=== PATIENT | male | born 1955 | race Two or more races ===

== ENCOUNTER 2022-01-27 17:12 | Inpatient (IN) | payer MEDICARE, MEDICAID ==
[~2022-01-27] VITALS: Ht 172.7 cm; Wt 111.0 kg
[~2022-01-27 17:12] MED LIST: TRAM100T25 PO
[2022-01-27] MEDS ORDERED: LISI-894 PO (17:54)
[2022-01-27] MEDS ORDERED: METF-1211 PO (17:54)
[2022-01-27] MEDS ORDERED: PANT-31 PO (17:54)
[2022-01-27] MEDS ORDERED: PIPERACILLIN/TAZO 3.375 GM/D5W 50 ML IV ONE (18:45)
[2022-01-27 19:08] LABS: BASOPHILS % (AUTO) 0.9 % (0.0-2.0); EOSINOPHILS % (AUTO) 1.8 % (1.0-6.0); HEMATOCRIT 40.6 % (41-53); HEMOGLOBIN 13.3 g/dL (13.5-17.5); LYMPHOCYTES # (AUTO) 1.6 K/uL (1.0-4.8); MEAN CORPUSCULAR HEMOGLOBIN 29.4 pg (26.0-34.0); MEAN CORPUSCULAR HGB CONC 32.8 G/dL (31.0-37.0); MEAN CORPUSCULAR VOLUME 90 fL (80-100); MONOCYTES # (AUTO) 1.2 K/uL (0.1-1.0); NEUTROPHILS # (AUTO) 10.4 K/uL (1.8-7.7); NEUTROPHILS % (AUTO) 76.3 % (40.0-70.0); PLATELET COUNT (AUTO) 196 K/uL (150-450); RED BLOOD CELL COUNT(AUTO) 4.53 MIL/uL (4.50-5.90); RED CELL DISTRIBUTION WIDTH 13.9 % (11.5-14.5)
[2022-01-27 19:19] LABS: CALCIUM, TOTAL 9.1 mg/dL (8.8-10.5); CREATININE 1.3 mg/dL (0.60-1.30); POTASSIUM 4.4 mmol/L (3.5-5.1)
[2022-01-27 19:26] LABS: LACTIC ACID 1.9 mmol/L (0.4-2.0)
[2022-01-27 19:33] LABS: ALBUMIN 3.6 g/dL (3.4-5.0); BILIRUBIN,TOTAL 0.2 mg/dL (0.1-1.0); TOTAL PROTEIN, SERUM 7.5 g/dL (6.4-8.2)
[2022-01-27] MEDS ORDERED: CefTRIAXone 1 GM/DEXTROSE 50 ML IV ONE (20:00)
[2022-01-27] MEDS ORDERED: VANCOMYCIN HCL 1 GM/D5% WATER 200 ML IV SCH (20:00)
[2022-01-27] MEDS ORDERED: DEXTROSE 50%-WATER 25 GM/50 ML SYRINGE IVP PRN (20:00)
[2022-01-27] MEDS ORDERED: ONDANSETRON HCL 4 MG/2 ML VIAL IVP PRN (20:00)
[2022-01-27] MEDS: VANCOMYCIN 1GM/WATER(PEG/NADA) 200 ML IV SCH (20:46)
[2022-01-27] MEDS: ACETAMINOPHEN 325 MG TABLET PO PRN (21:23)
[2022-01-27 22:32] VITALS: BP 122/72
[2022-01-27] MEDS: MORPHINE SULFATE 2 MG/ML SYRINGE IVP PRN (23:20)
[2022-01-27] MEDS: HEPARIN SODIUM,PORCINE 5,000 UNITS/ML VIAL SQ SCH (23:25)
[2022-01-28] MEDS: MORPHINE SULFATE 2 MG/ML SYRINGE IVP PRN ×4 (03:50→20:05)
[2022-01-28] MEDS: ACETAMINOPHEN 325 MG TABLET PO PRN (04:27)
[2022-01-28 04:52] VITALS: BP 102/63
[2022-01-28] MEDS: HEPARIN SODIUM,PORCINE 5,000 UNITS/ML VIAL SQ SCH ×3 (08:00→15:52)
[2022-01-28 10:25] VITALS: BP 120/79
[2022-01-28] MEDS: VANCOMYCIN 1GM/WATER(PEG/NADA) 200 ML IV SCH ×2 (10:25→20:59)
[2022-01-28] MEDS ORDERED: SODIUM CHLORIDE 0.9% 500 ML IV ONE (10:31)
[2022-01-28 11:31] LABS: GLUCOMETER DEV NAME(LOC) 5S.1B; GLUCOSE,POINT OF CARE 187 MG/DL (70-110)
[2022-01-28 13:04] VITALS: BP 109/69
[2022-01-28] MEDS: ALBUTEROL SULFATE 2.5 MG/0.5 ML NEB SOLUTION NEB PRN (15:58)
[2022-01-28 19:58] VITALS: BP 106/59
[2022-01-28 20:05] LABS: GLUCOMETER DEV NAME(LOC) 5S.2B; GLUCOSE,POINT OF CARE 182 MG/DL (70-110)
[2022-01-28] MEDS: CefTRIAXone 1 GM/DEXTROSE 50 ML IV SCH (20:17)
[2022-01-28] MEDS: INSULIN LISPRO 100 UNITS/ML SQ PRN (20:18)
[2022-01-28 21:41] LABS: GLUCOMETER DEV NAME(LOC) 5S.1B; GLUCOSE,POINT OF CARE 176 MG/DL (70-110)
[2022-01-29 00:40] VITALS: BP 109/69
[2022-01-29] MEDS: MORPHINE SULFATE 2 MG/ML SYRINGE IVP PRN ×5 (00:40→19:42)
[2022-01-29 06:41] VITALS: BP_SYST 107; BP_SYST 122; BP_DIAS 68; BP_DIAS 76
[2022-01-29 06:41] LABS: GLUCOMETER DEV NAME(LOC) 5S.1B; GLUCOSE,POINT OF CARE 136 MG/DL (70-110)
[2022-01-29 07:55] VITALS: BP 111/60
[2022-01-29] MEDS: HEPARIN SODIUM,PORCINE 5,000 UNITS/ML VIAL SQ SCH ×3 (08:57→16:00)
[2022-01-29] MEDS: VANCOMYCIN 1GM/WATER(PEG/NADA) 200 ML IV SCH ×2 (08:57→19:43)
[2022-01-29] MEDS: INSULIN LISPRO 100 UNITS/ML SQ PRN ×2 (11:55→17:49)
[2022-01-29 12:33] VITALS: BP 128/72
[2022-01-29] MEDS ORDERED: MORPHINE SULFATE 2 MG/ML SYRINGE IVP ONE (13:00)
[2022-01-29] MEDS: ALBUTEROL SULFATE 2.5 MG/0.5 ML NEB SOLUTION NEB PRN (14:20)
[2022-01-29 15:39] VITALS: BP_SYST 112; BP_SYST 146; BP_DIAS 74; BP_DIAS 82
[2022-01-29 18:36] LABS: GLUCOMETER DEV NAME(LOC) 5N.1C; GLUCOSE,POINT OF CARE 218 MG/DL (70-110)
[2022-01-29] MEDS: CefTRIAXone 1 GM/DEXTROSE 50 ML IV SCH (19:42)
[2022-01-29] MEDS ORDERED: PSYLLIUM SEED ORANGE SF 5.8 GM/PACKET PO PRN (21:00)
[2022-01-30] MEDS: MORPHINE SULFATE 2 MG/ML SYRINGE IVP PRN ×3 (00:08→08:28)
[2022-01-30] MEDS: HEPARIN SODIUM,PORCINE 5,000 UNITS/ML VIAL SQ SCH ×2 (00:08→08:00)
[2022-01-30 00:11] VITALS: BP 107/69
[2022-01-30] MEDS: ALBUTEROL SULFATE 2.5 MG/0.5 ML NEB SOLUTION NEB PRN ×2 (03:44→09:09)
[2022-01-30 04:06] LABS: GLUCOMETER DEV NAME(LOC) 5S.2B; GLUCOSE,POINT OF CARE 191 MG/DL (70-110)
[2022-01-30 04:30] VITALS: BP 118/70
[2022-01-30 08:00] VITALS: BP 128/72
[2022-01-30] MEDS: VANCOMYCIN 1GM/WATER(PEG/NADA) 200 ML IV SCH (08:40)
[2022-01-30] MEDS ORDERED: MULTIVITAMINS WITH MINERALS, THERAPEUTIC TABLET PO SCH (09:00)
[2022-01-30] MEDS ORDERED: GABAPENTIN 300 MG CAPSULE PO SCH ×2 (09:00→13:00)
[2022-01-30] MEDS ORDERED: QUEtiapine FUMARATE 100 MG TABLET PO PRN (10:00)
[2022-01-30] MEDS ORDERED: GABAPENTIN 300 MG CAPSULE PO PRN (10:00)
[2022-01-30] MEDS ORDERED: DIVALPROEX SODIUM 500 MG ER TABLET PO SCH (13:00)
[2022-01-30] MEDS ORDERED: MIRTAZAPINE 15 MG TABLET PO SCH (21:00)
[2022-01-31] MEDS ORDERED: DULoxetine HCL 20 MG CAPSULE PO SCH (09:00)
== END 2022-01-30 10:30 | disposition left against medical advice (07) | DRG 383 ==
LOC: EMS 17:14 → 5S 21:41
PROVIDERS: ADMIT Internal Medicine; ATTEND Internal Medicine
DX: L03.115 Cellulitis of right lower limb (principal); E11.40 Type 2 diabetes mellitus with diabetic neuropathy, unspecified; E11.51 Type 2 diabetes mellitus with diabetic peripheral angiopathy without gangrene; I10 Essential (primary) hypertension; F17.210 Nicotine dependence, cigarettes, uncomplicated; Z53.29 Procedure and treatment not carried out because of patient's decision for other reasons; M06.9 Rheumatoid arthritis, unspecified; J44.9 Chronic obstructive pulmonary disease, unspecified; E66.01 Morbid (severe) obesity due to excess calories; F31.9 Bipolar disorder, unspecified; F43.10 Post-traumatic stress disorder, unspecified; Z79.84 Long term (current) use of oral hypoglycemic drugs; Z68.37 Body mass index [BMI] 37.0-37.9, adult; Z71.6 Tobacco abuse counseling; Z76.5 Malingerer [conscious simulation]
CPT/HCPCS: 73700; 80053; 82962; 83605; 85025; 93926; 94640; 99285; G0378; J0696; J1644; J2270; J2543; J3370; J7040; Q9967

== ENCOUNTER 2022-02-08 21:20 | Inpatient (IN) | payer MEDICARE, MEDICAID ==
[~2022-02-08] VITALS: Ht 172.7 cm; Wt 106.8 kg
[~2022-02-08 21:20] MED LIST changes: +LISI-894 PO; +METF-1211 PO; +PANT-31 PO; -TRAM100T25 PO
[2022-02-08] MEDS ORDERED: MethylPREDNISolone SOD SUCC 125 MG/2 ML VIAL IVP ONE (23:00)
[2022-02-08] MEDS ORDERED: ALBUTEROL SULFATE 2.5 MG/0.5 ML NEB SOLUTION NEB ONE (23:00)
[2022-02-08] MEDS ORDERED: IPRATROPIUM BROMIDE 0.5 MG/2.5 ML NEB SOLUTION NEB ONE (23:00)
[2022-02-08] MEDS ORDERED: HYDROGEN PEROXIDE 118 ML SOLUTION TP ONE (23:00)
[2022-02-08 23:21] LABS: BASOPHILS % (AUTO) 0.8 % (0.0-2.0); EOSINOPHILS % (AUTO) 4.6 % (1.0-6.0); HEMATOCRIT 38.4 % (41-53); HEMOGLOBIN 12.8 g/dL (13.5-17.5); LYMPHOCYTES # (AUTO) 1.7 K/uL (1.0-4.8); MEAN CORPUSCULAR HEMOGLOBIN 29.6 pg (26.0-34.0); MEAN CORPUSCULAR HGB CONC 33.4 G/dL (31.0-37.0); MEAN CORPUSCULAR VOLUME 89 fL (80-100); MONOCYTES # (AUTO) 0.7 K/uL (0.1-1.0); MONOCYTES % (AUTO) 7.6 % (2.0-9.0); NEUTROPHILS # (AUTO) 6.1 K/uL (1.8-7.7); PLATELET COUNT (AUTO) 219 K/uL (150-450); RED BLOOD CELL COUNT(AUTO) 4.34 MIL/uL (4.50-5.90); RED CELL DISTRIBUTION WIDTH 13.6 % (11.5-14.5)
[2022-02-08] MEDS ORDERED: LORazepam 2 MG/ML VIAL IVP ONE (23:30)
[2022-02-08] MEDS ORDERED: DEXTROSE 50%-WATER 25 GM/50 ML SYRINGE IVP PRN (23:30)
[2022-02-08 23:31] LABS: ANION GAP 7 mmol/L (8-16); CALCIUM, TOTAL 9.1 mg/dL (8.8-10.5); CARBON DIOXIDE 29 mmol/L (22-29); CHLORIDE 103 mmol/L (98-107); CREATININE 0.92 mg/dL (0.60-1.30); GLOMERULAR FILTR. RATE CALC > 60 mL/min (>60); GLUCOSE,RANDOM 93 mg/dL (70-110); POTASSIUM 4.8 mmol/L (3.5-5.1); SODIUM SERUM 139 mmol/L (136-145); UREA NITROGEN, BLOOD 16 mg/dL (7-18)
[2022-02-08 23:37] LABS: ALANINE AMINOTRANSFERASE 34 U/L (12-78); ALBUMIN 3.8 g/dL (3.4-5.0); ALKALINE PHOSPHATASE 137 U/L (46-116); ASPARTATE AMINOTRANSFERASE 29 U/L (15-37); BILIRUBIN,TOTAL 0.3 mg/dL (0.1-1.0); LIPASE 95 U/L (73-393); TOTAL PROTEIN, SERUM 7.7 g/dL (6.4-8.2)
[2022-02-08 23:38] LABS: LACTIC ACID 1.4 mmol/L (0.4-2.0)
[2022-02-08 23:40] LABS: B-TYPE NATRIURETIC PEPTIDE 20 pg/mL (0-100)
[2022-02-08] MEDS ORDERED: VANCOMYCIN HCL 1.5 GM in DEXTROSE 5%-WATER 250 ML IV ONE (23:45)
[2022-02-08] MEDS ORDERED: ZOLPIDEM TARTRATE 5 MG TABLET PO PRN (23:45)
[2022-02-08] MEDS ORDERED: ONDANSETRON HCL 4 MG/2 ML VIAL IVP PRN (23:45)
[2022-02-09] MEDS: HEPARIN SODIUM,PORCINE 5,000 UNITS/ML VIAL SQ SCH ×5 (00:07→23:35)
[2022-02-09] MEDS ORDERED: 0.9% SODIUM CHLORIDE 5 ML NEB SOLUTION NEB ONE (00:20)
[2022-02-09] MEDS ORDERED: ALBUTEROL SULFATE 5 MG/ML 20 ML NEB SOLN [BULK] NEB ONE (00:30)
[2022-02-09 01:14] LABS: COVID AG,FIA SOURCE NASOPHARYNGEAL
[2022-02-09] MEDS: ACETAMINOPHEN 325 MG TABLET PO PRN ×2 (02:06→23:45)
[2022-02-09 03:32] VITALS: BP 121/60
[2022-02-09] MEDS ORDERED: SODIUM CHLORIDE 0.9% 500 ML IV ONE (04:44)
[2022-02-09] MEDS: CefTRIAXone 1 GM/DEXTROSE 50 ML IV SCH (04:46)
[2022-02-09] MEDS: INSULIN LISPRO 100 UNITS/ML SQ PRN ×2 (06:01→12:33)
[2022-02-09 08:00] VITALS: BP 137/75
[2022-02-09 08:34] LABS: ANION GAP 12 mmol/L (8-16); CALCIUM, TOTAL 8.7 mg/dL (8.8-10.5); CARBON DIOXIDE 24 mmol/L (22-29); CHLORIDE 102 mmol/L (98-107); CREATININE 1.09 mg/dL (0.60-1.30); GLOMERULAR FILTR. RATE CALC > 60 mL/min (>60); GLUCOSE,RANDOM 309 mg/dL (70-110); POTASSIUM 4.2 mmol/L (3.5-5.1); SODIUM SERUM 138 mmol/L (136-145); UREA NITROGEN, BLOOD 17 mg/dL (7-18)
[2022-02-09] MEDS: VANCOMYCIN HCL 1.5 GM in DEXTROSE 5%-WATER 250 ML IV SCH ×2 (08:49→21:35)
[2022-02-09] MEDS: GABAPENTIN 300 MG CAPSULE PO SCH ×5 (08:50→21:00)
[2022-02-09] MEDS: DOCUSATE SODIUM 100 MG CAPSULE PO SCH ×3 (08:50→21:00)
[2022-02-09] MEDS: DIVALPROEX SODIUM 500 MG ER TABLET PO SCH ×4 (08:50→21:00)
[2022-02-09] MEDS: FAMOTIDINE 20 MG TABLET PO SCH (08:50)
[2022-02-09] MEDS: DULoxetine HCL 20 MG CAPSULE PO SCH (08:51)
[2022-02-09] MEDS ORDERED: ACETAMINOPHEN 1000 MG/ISO-OSM 100 ML IV ONE (10:45)
[2022-02-09 12:00] VITALS: BP 125/68
[2022-02-09] MEDS: IPRATROPIUM BROMIDE 0.5 MG/2.5 ML NEB SOLUTION NEB PRN (14:09)
[2022-02-09] MEDS: ALBUTEROL SULFATE 2.5 MG/0.5 ML NEB SOLUTION NEB PRN (14:10)
[2022-02-09 16:00] LABS: APPEARANCE,URINE CLEAR (CLEAR); BILIRUBIN,URINE NEGATIVE (NEGATIVE); GLUCOSE, URINE (UA) >=1000 mg/dL (NEGATIVE); KETONES,URINE TRACE mg/dL (NEGATIVE); LEUKOCYTE ESTERASE ,URINE NEGATIVE (NEGATIVE); NITRATE,URINE NEGATIVE (NEGATIVE); OCCULT BLOOD,URINE NEGATIVE (NEGATIVE); PH,URINE 5.5 (5.0-8.0); PROTEIN,URINE NEGATIVE (NEGATIVE); SPECIFIC GRAVITIY, URINE 1.033 (1.003-1.030); UROBILINOGEN,URINE <=1.0 mg/dL (<=1.0)
[2022-02-09 16:08] LABS: AMPHET/METH SCREEN,URINE POSITIVE (NEGATIVE); BARBITURATE SCREEN, URINE NEGATIVE (NEGATIVE); BENZODIAZEPINES SCREEN,URINE NEGATIVE (NEGATIVE); CANNABINOID SCREEN,URINE POSITIVE (NEGATIVE); COCAINE SCREEN,URINE NEGATIVE (NEGATIVE); METHADONE SCREEN, URINE NEGATIVE (NEGATIVE); OPIATE SCREEN,URINE POSITIVE (NEGATIVE); PHENCYCLIDINE SCREEN,URINE NEGATIVE (NEGATIVE)
[2022-02-09 16:59] LABS: BACTERIA,URINE None Seen /HPF (None Seen); RBC,URINE None Seen /HPF (0-2); WBC,URINE 0-2 /HPF (0-5)
[2022-02-09 20:11] LABS: GLUCOMETER DEV NAME(LOC) 5S.2B; GLUCOSE,POINT OF CARE 209 MG/DL (70-110)
[2022-02-09 20:16] VITALS: BP 140/79
[2022-02-09 20:21] LABS: GLUCOMETER DEV NAME(LOC) 5N.3; GLUCOSE,POINT OF CARE 305 MG/DL (70-110)
[2022-02-09] MEDS: MIRTAZAPINE 15 MG TABLET PO SCH ×2 (20:50→21:00)
[2022-02-09] MEDS ORDERED: SODIUM CHLORIDE 0.9% 250 ML IV ONE (21:23)
[2022-02-09 23:46] VITALS: BP 114/51
[2022-02-10 04:00] VITALS: BP 156/56
[2022-02-10] MEDS: CefTRIAXone 1 GM/DEXTROSE 50 ML IV SCH (04:12)
[2022-02-10 06:27] LABS: GLUCOMETER DEV NAME(LOC) 5S.2B; GLUCOSE,POINT OF CARE 127 MG/DL (70-110)
[2022-02-10] MEDS: HEPARIN SODIUM,PORCINE 5,000 UNITS/ML VIAL SQ SCH ×3 (08:00→23:27)
[2022-02-10 08:13] VITALS: BP 135/70
[2022-02-10] MEDS: DULoxetine HCL 20 MG CAPSULE PO SCH (08:29)
[2022-02-10] MEDS: GABAPENTIN 300 MG CAPSULE PO SCH ×4 (08:29→20:27)
[2022-02-10] MEDS: FAMOTIDINE 20 MG TABLET PO SCH (08:29)
[2022-02-10] MEDS: DIVALPROEX SODIUM 500 MG ER TABLET PO SCH ×3 (08:29→20:27)
[2022-02-10] MEDS: DOCUSATE SODIUM 100 MG CAPSULE PO SCH ×2 (08:29→20:28)
[2022-02-10 08:39] LABS: BASOPHILS % (AUTO) 0.7 % (0.0-2.0); EOSINOPHILS % (AUTO) 1.8 % (1.0-6.0); HEMATOCRIT 35.7 % (41-53); LYMPHOCYTES # (AUTO) 1.6 K/uL (1.0-4.8); LYMPHOCYTES % (AUTO) 18.9 % (22.0-44.0); MEAN CORPUSCULAR HEMOGLOBIN 30.1 pg (26.0-34.0); MEAN CORPUSCULAR HGB CONC 33.7 G/dL (31.0-37.0); MEAN CORPUSCULAR VOLUME 90 fL (80-100); MONOCYTES # (AUTO) 0.7 K/uL (0.1-1.0); MONOCYTES % (AUTO) 8.1 % (2.0-9.0); NEUTROPHILS # (AUTO) 6.1 K/uL (1.8-7.7); NEUTROPHILS % (AUTO) 70.5 % (40.0-70.0); PLATELET COUNT (AUTO) 204 K/uL (150-450); RED BLOOD CELL COUNT(AUTO) 3.98 MIL/uL (4.50-5.90); RED CELL DISTRIBUTION WIDTH 13.9 % (11.5-14.5)
[2022-02-10] MEDS: ALBUTEROL SULFATE 2.5 MG/0.5 ML NEB SOLUTION NEB PRN (10:42)
[2022-02-10] MEDS: IPRATROPIUM BROMIDE 0.5 MG/2.5 ML NEB SOLUTION NEB PRN (10:42)
[2022-02-10] MEDS: ACETAMINOPHEN 325 MG TABLET PO PRN ×2 (11:43→20:28)
[2022-02-10] MEDS: VANCOMYCIN HCL 1.5 GM in DEXTROSE 5%-WATER 250 ML IV SCH ×2 (11:43→20:28)
[2022-02-10 11:46] VITALS: BP 129/65
[2022-02-10 14:20] LABS: ANION GAP 9 mmol/L (8-16); CALCIUM, TOTAL 8.6 mg/dL (8.8-10.5); CARBON DIOXIDE 28 mmol/L (22-29); CHLORIDE 103 mmol/L (98-107); CREATININE 0.86 mg/dL (0.60-1.30); GLOMERULAR FILTR. RATE CALC > 60 mL/min (>60); GLUCOSE,RANDOM 128 mg/dL (70-110); POTASSIUM 4.2 mmol/L (3.5-5.1); SODIUM SERUM 140 mmol/L (136-145); UREA NITROGEN, BLOOD 17 mg/dL (7-18); VANCOMYCIN,RANDOM 21.9 mcg/mL (25.0-50.0)
[2022-02-10] MEDS: OxyCODONE HCL/ACETAMINOPHEN 5-325 MG TABLET PO PRN (15:54)
[2022-02-10] MEDS ORDERED: QUEtiapine FUMARATE 100 MG TABLET PO PRN (17:00)
[2022-02-10] MEDS: INSULIN LISPRO 100 UNITS/ML SQ PRN (17:53)
[2022-02-10 19:32] VITALS: BP 130/64
[2022-02-10] MEDS: MIRTAZAPINE 15 MG TABLET PO SCH (20:27)
[2022-02-11 04:34] VITALS: BP 154/77
[2022-02-11] MEDS: CefTRIAXone 1 GM/DEXTROSE 50 ML IV SCH (05:27)
[2022-02-11 06:12] VITALS: BP 134/92
[2022-02-11 06:18] LABS: BASOPHILS % (AUTO) 0.6 % (0.0-2.0); EOSINOPHILS % (AUTO) 6.1 % (1.0-6.0); HEMATOCRIT 39.4 % (41-53); HEMOGLOBIN 13.1 g/dL (13.5-17.5); LYMPHOCYTES # (AUTO) 1.6 K/uL (1.0-4.8); LYMPHOCYTES % (AUTO) 26.1 % (22.0-44.0); MEAN CORPUSCULAR HEMOGLOBIN 29.6 pg (26.0-34.0); MEAN CORPUSCULAR HGB CONC 33.3 G/dL (31.0-37.0); MEAN CORPUSCULAR VOLUME 89 fL (80-100); MONOCYTES # (AUTO) 0.7 K/uL (0.1-1.0); MONOCYTES % (AUTO) 11.2 % (2.0-9.0); NEUTROPHILS # (AUTO) 3.5 K/uL (1.8-7.7); PLATELET COUNT (AUTO) 192 K/uL (150-450); RED BLOOD CELL COUNT(AUTO) 4.42 MIL/uL (4.50-5.90); RED CELL DISTRIBUTION WIDTH 13.9 % (11.5-14.5)
[2022-02-11] MEDS: INSULIN LISPRO 100 UNITS/ML SQ PRN ×2 (06:19→18:04)
[2022-02-11 06:36] LABS: GLUCOMETER DEV NAME(LOC) 6N.2; GLUCOSE,POINT OF CARE 175 MG/DL (70-110)
[2022-02-11 06:37] LABS: ANION GAP 7 mmol/L (8-16); CALCIUM, TOTAL 8.8 mg/dL (8.8-10.5); CARBON DIOXIDE 30 mmol/L (22-29); CHLORIDE 103 mmol/L (98-107); CREATININE 0.98 mg/dL (0.60-1.30); GLOMERULAR FILTR. RATE CALC > 60 mL/min (>60); GLUCOSE,RANDOM 207 mg/dL (70-110); POTASSIUM 4.1 mmol/L (3.5-5.1); SODIUM SERUM 140 mmol/L (136-145); UREA NITROGEN, BLOOD 16 mg/dL (7-18); VANCOMYCIN,RANDOM 24.8 mcg/mL (25.0-50.0)
[2022-02-11 08:30] VITALS: BP 140/82
[2022-02-11] MEDS: HEPARIN SODIUM,PORCINE 5,000 UNITS/ML VIAL SQ SCH ×3 (08:34→23:59)
[2022-02-11] MEDS: VANCOMYCIN HCL 1.5 GM in DEXTROSE 5%-WATER 250 ML IV SCH (08:34)
[2022-02-11] MEDS: GABAPENTIN 300 MG CAPSULE PO SCH ×4 (08:34→20:59)
[2022-02-11] MEDS: FAMOTIDINE 20 MG TABLET PO SCH (08:34)
[2022-02-11] MEDS: DOCUSATE SODIUM 100 MG CAPSULE PO SCH ×2 (08:35→20:59)
[2022-02-11] MEDS: DIVALPROEX SODIUM 500 MG ER TABLET PO SCH ×3 (08:35→20:59)
[2022-02-11] MEDS: OxyCODONE HCL/ACETAMINOPHEN 5-325 MG TABLET PO PRN ×4 (08:35→23:05)
[2022-02-11] MEDS: DULoxetine HCL 20 MG CAPSULE PO SCH (08:36)
[2022-02-11] MEDS: IPRATROPIUM BROMIDE 0.5 MG/2.5 ML NEB SOLUTION NEB PRN ×2 (09:33→19:51)
[2022-02-11] MEDS: ALBUTEROL SULFATE 2.5 MG/0.5 ML NEB SOLUTION NEB PRN ×2 (09:34→19:51)
[2022-02-11] MEDS ORDERED: DiphenhydrAMINE HCL 50 MG/ML VIAL IM ONE (10:30)
[2022-02-11] MEDS ORDERED: LORazepam 2 MG/ML VIAL IM ONE (10:30)
[2022-02-11] MEDS ORDERED: HALOPERIDOL LACTATE 5 MG/ML VIAL IM ONE (10:30)
[2022-02-11] MEDS ORDERED: HALOPERIDOL LACTATE 5 MG/ML VIAL ONE (10:35)
[2022-02-11] MEDS ORDERED: LORazepam 2 MG/ML VIAL ONE (10:37)
[2022-02-11] MEDS: LORazepam 2 MG TABLET PO PRN ×2 (12:05→16:57)
[2022-02-11 12:07] LABS: GLUCOMETER DEV NAME(LOC) 6N.2; GLUCOSE,POINT OF CARE 151 MG/DL (70-110)
[2022-02-11 16:05] VITALS: BP 146/80
[2022-02-11 17:56] LABS: GLUCOMETER DEV NAME(LOC) 6N.2; GLUCOSE,POINT OF CARE 170 MG/DL (70-110)
[2022-02-11 18:11] VITALS: BP 159/104
[2022-02-11 18:16] LABS: GLUCOMETER DEV NAME(LOC) 5N.3; GLUCOSE,POINT OF CARE 168 MG/DL (70-110)
[2022-02-11] MEDS: VANCOMYCIN HCL 1.25 GM in DEXTROSE 5%-WATER 250 ML IV SCH (20:00)
[2022-02-11 20:33] VITALS: BP 146/84
[2022-02-11] MEDS: MIRTAZAPINE 15 MG TABLET PO SCH (20:59)
[2022-02-11 22:16] LABS: GLUCOMETER DEV NAME(LOC) 6N.2; GLUCOSE,POINT OF CARE 152 MG/DL (70-110)
[2022-02-12 03:07] VITALS: BP 151/78
[2022-02-12] MEDS: CefTRIAXone 1 GM/DEXTROSE 50 ML IV SCH (05:00)
[2022-02-12] MEDS: INSULIN LISPRO 100 UNITS/ML SQ PRN ×2 (06:30→11:42)
[2022-02-12] MEDS: ALBUTEROL SULFATE 2.5 MG/0.5 ML NEB SOLUTION NEB PRN ×3 (07:19→21:45)
[2022-02-12] MEDS: IPRATROPIUM BROMIDE 0.5 MG/2.5 ML NEB SOLUTION NEB PRN ×2 (07:19→13:35)
[2022-02-12 07:46] LABS: GLUCOMETER DEV NAME(LOC) 6N.1; GLUCOSE,POINT OF CARE 170 MG/DL (70-110)
[2022-02-12] MEDS: VANCOMYCIN HCL 1.25 GM in DEXTROSE 5%-WATER 250 ML IV SCH (08:00)
[2022-02-12 08:17] VITALS: BP 143/90
[2022-02-12] MEDS: DIVALPROEX SODIUM 500 MG ER TABLET PO SCH ×5 (08:49→21:00)
[2022-02-12] MEDS: DOCUSATE SODIUM 100 MG CAPSULE PO SCH ×3 (08:49→21:00)
[2022-02-12] MEDS: DULoxetine HCL 20 MG CAPSULE PO SCH ×2 (08:50→09:00)
[2022-02-12] MEDS: FAMOTIDINE 20 MG TABLET PO SCH ×2 (08:50→09:00)
[2022-02-12] MEDS: HEPARIN SODIUM,PORCINE 5,000 UNITS/ML VIAL SQ SCH ×2 (08:50→16:22)
[2022-02-12] MEDS: GABAPENTIN 300 MG CAPSULE PO SCH ×4 (08:50→21:39)
[2022-02-12] MEDS: OxyCODONE HCL/ACETAMINOPHEN 5-325 MG TABLET PO PRN ×3 (09:41→21:39)
[2022-02-12 13:31] LABS: GLUCOMETER DEV NAME(LOC) 6N.1; GLUCOSE,POINT OF CARE 196 MG/DL (70-110)
[2022-02-12] MEDS: CLINDAMYCIN 600 MG/D5% WATER 50 ML IV SCH (16:22)
[2022-02-12] MEDS ORDERED: ALBUTEROL SULFATE HFA 90 MCG/PUFF 8 GM INHALER IH PRN (18:15)
[2022-02-12] MEDS: MIRTAZAPINE 15 MG TABLET PO SCH (21:00)
[2022-02-12 21:35] VITALS: BP 169/75
[2022-02-13] MEDS: OxyCODONE HCL/ACETAMINOPHEN 5-325 MG TABLET PO PRN ×5 (02:51→21:32)
[2022-02-13] MEDS: IPRATROPIUM BROMIDE 0.5 MG/2.5 ML NEB SOLUTION NEB PRN ×4 (03:09→19:54)
[2022-02-13] MEDS: ALBUTEROL SULFATE 2.5 MG/0.5 ML NEB SOLUTION NEB PRN ×4 (03:09→19:55)
[2022-02-13 04:00] VITALS: BP 129/79
[2022-02-13] MEDS: CefTRIAXone 1 GM/DEXTROSE 50 ML IV SCH (05:00)
[2022-02-13] MEDS: ACETAMINOPHEN 325 MG TABLET PO PRN ×2 (06:21→15:49)
[2022-02-13] MEDS: INSULIN LISPRO 100 UNITS/ML SQ PRN ×4 (06:23→21:49)
[2022-02-13 07:16] LABS: GLUCOMETER DEV NAME(LOC) 6N.2; GLUCOSE,POINT OF CARE 209 MG/DL (70-110)
[2022-02-13 07:31] VITALS: BP 145/68
[2022-02-13] MEDS: HEPARIN SODIUM,PORCINE 5,000 UNITS/ML VIAL SQ SCH ×4 (08:00→23:11)
[2022-02-13] MEDS: CLINDAMYCIN 600 MG/D5% WATER 50 ML IV SCH ×2 (08:00)
[2022-02-13] MEDS: GABAPENTIN 300 MG CAPSULE PO SCH ×4 (09:00→21:32)
[2022-02-13] MEDS: DULoxetine HCL 20 MG CAPSULE PO SCH (09:00)
[2022-02-13] MEDS: DIVALPROEX SODIUM 500 MG ER TABLET PO SCH ×3 (09:00→21:00)
[2022-02-13] MEDS: DOCUSATE SODIUM 100 MG CAPSULE PO SCH ×2 (09:00→21:00)
[2022-02-13] MEDS: FAMOTIDINE 20 MG TABLET PO SCH (09:00)
[2022-02-13] MEDS: LORazepam 2 MG TABLET PO PRN ×2 (11:35→21:37)
[2022-02-13 12:26] LABS: GLUCOMETER DEV NAME(LOC) 6N.1; GLUCOSE,POINT OF CARE 177 MG/DL (70-110)
[2022-02-13 14:37] LABS: BASOPHILS % (AUTO) 0.6 % (0.0-2.0); EOSINOPHILS % (AUTO) 8.1 % (1.0-6.0); HEMATOCRIT 37.8 % (41-53); HEMOGLOBIN 12.5 g/dL (13.5-17.5); LYMPHOCYTES # (AUTO) 1.6 K/uL (1.0-4.8); LYMPHOCYTES % (AUTO) 23.5 % (22.0-44.0); MEAN CORPUSCULAR HEMOGLOBIN 29.5 pg (26.0-34.0); MEAN CORPUSCULAR HGB CONC 33.1 G/dL (31.0-37.0); MEAN CORPUSCULAR VOLUME 89 fL (80-100); MONOCYTES # (AUTO) 0.7 K/uL (0.1-1.0); MONOCYTES % (AUTO) 10.7 % (2.0-9.0); NEUTROPHILS # (AUTO) 3.8 K/uL (1.8-7.7); NEUTROPHILS % (AUTO) 57.1 % (40.0-70.0); PLATELET COUNT (AUTO) 187 K/uL (150-450); RED BLOOD CELL COUNT(AUTO) 4.24 MIL/uL (4.50-5.90); RED CELL DISTRIBUTION WIDTH 13.8 % (11.5-14.5)
[2022-02-13 14:51] LABS: ANION GAP 6 mmol/L (8-16); CALCIUM, TOTAL 8.7 mg/dL (8.8-10.5); CARBON DIOXIDE 31 mmol/L (22-29); CHLORIDE 101 mmol/L (98-107); CREATININE 0.84 mg/dL (0.60-1.30); GLOMERULAR FILTR. RATE CALC > 60 mL/min (>60); GLUCOSE,RANDOM 198 mg/dL (70-110); POTASSIUM 4.4 mmol/L (3.5-5.1); SODIUM SERUM 138 mmol/L (136-145); UREA NITROGEN, BLOOD 15 mg/dL (7-18); VANCOMYCIN,RANDOM 2.3 mcg/mL (25.0-50.0)
[2022-02-13 15:10] VITALS: BP 148/70
[2022-02-13] MEDS ORDERED: ERTAPENEM SODIUM 1 GM in SODIUM CHLORIDE 0.9% 50 ML IV SCH (16:00)
[2022-02-13 20:02] LABS: GLUCOMETER DEV NAME(LOC) 6N.2; GLUCOSE,POINT OF CARE 256 MG/DL (70-110)
[2022-02-13] MEDS ORDERED: SODIUM CHLORIDE 0.9% 100 ML ONE (20:10)
[2022-02-13] MEDS ORDERED: IOHEXOL 350 MG/ML 150 ML VIAL ONE (20:10)
[2022-02-13 20:24] VITALS: BP 133/75
[2022-02-13] MEDS: MIRTAZAPINE 15 MG TABLET PO SCH (21:00)
[2022-02-13 23:41] LABS: GLUCOMETER DEV NAME(LOC) 6N.2; GLUCOSE,POINT OF CARE 154 MG/DL (70-110)
[2022-02-14] MEDS: OxyCODONE HCL/ACETAMINOPHEN 5-325 MG TABLET PO PRN ×2 (05:02→12:01)
[2022-02-14 05:49] VITALS: BP 126/73
[2022-02-14] MEDS: LORazepam 2 MG TABLET PO PRN ×2 (06:33→11:55)
[2022-02-14 07:37] VITALS: BP 172/96
[2022-02-14] MEDS: HEPARIN SODIUM,PORCINE 5,000 UNITS/ML VIAL SQ SCH (08:00)
[2022-02-14] MEDS: DIVALPROEX SODIUM 500 MG ER TABLET PO SCH (08:38)
[2022-02-14] MEDS: DOCUSATE SODIUM 100 MG CAPSULE PO SCH (08:38)
[2022-02-14] MEDS: FAMOTIDINE 20 MG TABLET PO SCH (08:38)
[2022-02-14] MEDS: GABAPENTIN 300 MG CAPSULE PO SCH ×2 (08:42→12:01)
[2022-02-14] MEDS: DULoxetine HCL 20 MG CAPSULE PO SCH (08:46)
[2022-02-14] MEDS: ALBUTEROL SULFATE 2.5 MG/0.5 ML NEB SOLUTION NEB PRN (09:07)
[2022-02-14] MEDS: IPRATROPIUM BROMIDE 0.5 MG/2.5 ML NEB SOLUTION NEB PRN (09:07)
[2022-02-14 15:22] VITALS: BP 132/85
[2022-02-14] MEDS ORDERED: ASPIRIN 81 MG DR TABLET PO SCH (15:45)
[2022-02-15] MEDS ORDERED: ATORVASTATIN CALCIUM 40 MG TABLET PO SCH (09:00)
== END 2022-02-14 15:45 | disposition left against medical advice (07) | DRG 383 ==
LOC: EMS 21:26 → 5S 02-09 00:19 → 6N 02-11 08:13
PROVIDERS: ADMIT Internal Medicine; ATTEND Internal Medicine
PROC: 05HY33Z Insertion of Infusion Device into Upper Vein, Percutaneous Approach (ICD-10-PCS; principal; 2022-02-13)
DX: L03.115 Cellulitis of right lower limb (principal); E11.40 Type 2 diabetes mellitus with diabetic neuropathy, unspecified; E11.51 Type 2 diabetes mellitus with diabetic peripheral angiopathy without gangrene; J44.1 Chronic obstructive pulmonary disease with (acute) exacerbation; L97.319 Non-pressure chronic ulcer of right ankle with unspecified severity; I83.013 Varicose veins of right lower extremity with ulcer of ankle; E66.01 Morbid (severe) obesity due to excess calories; F31.9 Bipolar disorder, unspecified; F43.10 Post-traumatic stress disorder, unspecified; I10 Essential (primary) hypertension; F60.2 Antisocial personality disorder; G89.29 Other chronic pain; K21.9 Gastro-esophageal reflux disease without esophagitis; E66.9 Obesity, unspecified; Z20.822 Contact with and (suspected) exposure to COVID-19; M06.9 Rheumatoid arthritis, unspecified; K75.9 Inflammatory liver disease, unspecified; Z59.00 Homelessness unspecified; Z91.19 Patient's noncompliance with other medical treatment and regimen; Z87.891 Personal history of nicotine dependence; Z79.84 Long term (current) use of oral hypoglycemic drugs; Z68.35 Body mass index [BMI] 35.0-35.9, adult; Z79.899 Other long term (current) drug therapy
CPT/HCPCS: 36245; 36569; 71045; 76937; 80048; 80053; 80202; 81001; 82962; 83605; 83690; 83880; 84145; 84484; 85025; 87040; 87070; 87081; 87205; 93005; 93925; 93971; 94640; 94644; 99285; G0378; G0480; J0131; J0696; J1200; J1335; J1630; J1644; J2060; J2930; J3370; J3490; J3535; J7040; J7050; J7060; Q9967; 36415-L1; 36415-TC; J7611; J7613

== ENCOUNTER 2022-03-09 17:17 | Emergency (ER) | payer MEDICARE, MEDICAID ==
[~2022-03-09] VITALS: Ht 172.7 cm; Wt 116.4 kg
[2022-03-09] MEDS ORDERED: insulin SQ (17:35)
[2022-03-09] MEDS ORDERED: KETOROLAC TROMETHAMINE 60 MG/2 ML VIAL IM ONE (18:15)
[2022-03-09] MEDS ORDERED: ACETAMINOPHEN 500 MG TABLET PO ONE (18:15)
[2022-03-09] MEDS ORDERED: GABAPENTIN 400 MG CAPSULE PO ONE (18:15)
[2022-03-09 18:46] LABS: BASOPHILS % (AUTO) 0.6 % (0.0-2.0); EOSINOPHILS % (AUTO) 6.6 % (1.0-6.0); HEMATOCRIT 36.6 % (41-53); HEMOGLOBIN 12.2 g/dL (13.5-17.5); LYMPHOCYTES # (AUTO) 2.6 K/uL (1.0-4.8); LYMPHOCYTES % (AUTO) 23.7 % (22.0-44.0); MEAN CORPUSCULAR HEMOGLOBIN 29.6 pg (26.0-34.0); MEAN CORPUSCULAR HGB CONC 33.3 G/dL (31.0-37.0); MEAN CORPUSCULAR VOLUME 89 fL (80-100); MONOCYTES # (AUTO) 1.1 K/uL (0.1-1.0); MONOCYTES % (AUTO) 10.1 % (2.0-9.0); NEUTROPHILS # (AUTO) 6.4 K/uL (1.8-7.7); PLATELET COUNT (AUTO) 197 K/uL (150-450); RED BLOOD CELL COUNT(AUTO) 4.12 MIL/uL (4.50-5.90); RED CELL DISTRIBUTION WIDTH 14.4 % (11.5-14.5)
[2022-03-09 18:56] LABS: ANION GAP 10 mmol/L (8-16); CALCIUM, TOTAL 9.6 mg/dL (8.8-10.5); CARBON DIOXIDE 27 mmol/L (22-29); CHLORIDE 103 mmol/L (98-107); CREATININE 1.07 mg/dL (0.60-1.30); GLUCOSE,RANDOM 117 mg/dL (70-110); POTASSIUM 4.6 mmol/L (3.5-5.1); SODIUM SERUM 140 mmol/L (136-145); UREA NITROGEN, BLOOD 18 mg/dL (7-18)
[2022-03-09 18:59] LABS: GLOMERULAR FILTR. RATE CALC > 60 mL/min (>60)
[2022-03-09 19:06] LABS: LACTIC ACID 1.5 mmol/L (0.4-2.0)
[2022-03-09 19:12] LABS: ALANINE AMINOTRANSFERASE 25 U/L (12-78); ALBUMIN 3.7 g/dL (3.4-5.0); ALKALINE PHOSPHATASE 136 U/L (46-116); ASPARTATE AMINOTRANSFERASE 24 U/L (15-37); BILIRUBIN,TOTAL 0.3 mg/dL (0.1-1.0); TOTAL PROTEIN, SERUM 7.6 g/dL (6.4-8.2)
[2022-03-09] MEDS ORDERED: PIPERACILLIN/TAZO 3.375 GM/D5W 50 ML IV ONE (19:15)
[2022-03-09] MEDS ORDERED: DOXY-354 PO (19:40)
[2022-03-09 19:54] VITALS: BP 130/75
== END 2022-03-09 19:55 | disposition home or self-care (01) ==
LOC: EMS 17:17
DX: L97.219 Non-pressure chronic ulcer of right calf with unspecified severity (principal); I10 Essential (primary) hypertension; E11.9 Type 2 diabetes mellitus without complications; J44.9 Chronic obstructive pulmonary disease, unspecified; Z79.899 Other long term (current) drug therapy
CPT/HCPCS: 36415; 80053; 82962; 83605; 85025; 96372; 99283; J1885

== ENCOUNTER 2022-04-12 07:21 | Emergency (ER) | payer MEDICARE, MEDICAID ==
[~2022-04-12] VITALS: Ht 172.7 cm; Wt 110.5 kg
[~2022-04-12 07:21] MED LIST changes: +DOXY-354 PO; +insulin SQ
[2022-04-12 09:40] VITALS: BP 119/58
[2022-04-12] MEDS ORDERED: ONDANSETRON HCL 4 MG/2 ML VIAL IVP PRN (10:00)
[2022-04-12] MEDS ORDERED: 0.9% SODIUM CHLORIDE 10 ML SYRINGE IVP PRN (10:00)
[2022-04-12] MEDS ORDERED: SODIUM CHLORIDE 0.9% 1,000 ML IV ONE (10:00)
[2022-04-12] MEDS ORDERED: ONDANSETRON HCL 4 MG/2 ML VIAL IVP ONE (10:00)
[2022-04-12] MEDS ORDERED: ACETAMINOPHEN 325 MG TABLET PO PRN (10:00)
[2022-04-12] MEDS ORDERED: HYDROmorphone 2 MG/ML VIAL IVP ONE (10:00)
[2022-04-12] MEDS ORDERED: VANCOMYCIN HCL 1.5 GM in DEXTROSE 5%-WATER 250 ML IV ONE (10:15)
[2022-04-12 10:16] LABS: GLUCOSE,POINT OF CARE 111 MG/DL (70-110)
[2022-04-12 10:44] LABS: EOSINOPHILS % (AUTO) 3.6 % (1.0-6.0); HEMATOCRIT 35.7 % (41-53); LYMPHOCYTES # (AUTO) 1.8 K/uL (1.0-4.8); LYMPHOCYTES % (AUTO) 21.1 % (22.0-44.0); MEAN CORPUSCULAR HEMOGLOBIN 29.7 pg (26.0-34.0); MEAN CORPUSCULAR HGB CONC 33.5 G/dL (31.0-37.0); MEAN CORPUSCULAR VOLUME 89 fL (80-100); MONOCYTES # (AUTO) 0.7 K/uL (0.1-1.0); MONOCYTES % (AUTO) 8.9 % (2.0-9.0); NEUTROPHILS # (AUTO) 5.5 K/uL (1.8-7.7); NEUTROPHILS % (AUTO) 65.4 % (40.0-70.0); PLATELET COUNT (AUTO) 193 K/uL (150-450); RED BLOOD CELL COUNT(AUTO) 4.03 MIL/uL (4.50-5.90); RED CELL DISTRIBUTION WIDTH 14.9 % (11.5-14.5)
[2022-04-12 10:58] LABS: ANION GAP 8 mmol/L (8-16); CALCIUM, TOTAL 9.3 mg/dL (8.8-10.5); CARBON DIOXIDE 27 mmol/L (22-29); CHLORIDE 104 mmol/L (98-107); CREATININE 0.83 mg/dL (0.60-1.30); GLUCOSE,RANDOM 104 mg/dL (70-110); SODIUM SERUM 139 mmol/L (136-145); UREA NITROGEN, BLOOD 14 mg/dL (7-18)
[2022-04-12 11:01] LABS: GLOMERULAR FILTR. RATE CALC > 60 mL/min (>60)
[2022-04-12 11:04] LABS: ALANINE AMINOTRANSFERASE 26 U/L (12-78); ALBUMIN 3.3 g/dL (3.4-5.0); ALKALINE PHOSPHATASE 118 U/L (46-116); ASPARTATE AMINOTRANSFERASE 21 U/L (15-37); BILIRUBIN,TOTAL 0.3 mg/dL (0.1-1.0); TOTAL PROTEIN, SERUM 7.4 g/dL (6.4-8.2)
[2022-04-12 11:07] LABS: LACTIC ACID 1.1 mmol/L (0.4-2.0)
[2022-04-12] MEDS ORDERED: HYDROGEN PEROXIDE 118 ML SOLUTION TP ONE (11:15)
== END 2022-04-12 13:25 | disposition left against medical advice (07) ==
LOC: EMS 07:21
DX: L97.211 Non-pressure chronic ulcer of right calf limited to breakdown of skin (principal); I10 Essential (primary) hypertension; E11.9 Type 2 diabetes mellitus without complications; J44.9 Chronic obstructive pulmonary disease, unspecified; F12.90 Cannabis use, unspecified, uncomplicated; F17.210 Nicotine dependence, cigarettes, uncomplicated; Z59.00 Homelessness unspecified
CPT/HCPCS: 80053; 82962; 83605; 84484; 85025; 87040; 93005; 99284; J1170; J2405; J3370; J7030; J7060